=== PATIENT | male | born 1940 | race Caucasian/White ===

== ENCOUNTER 2018-04-04 11:13 | Inpatient (IN) | payer MEDICARE, OTHER ==
[2018-04-04] MEDS: NS 1,000 ML IV ×2 (13:18→18:42)
[2018-04-04 13:19] LABS: BASO % 0.1 % (0.0-1.0); HEMATOCRIT 40.5 % (42.0-52.0); HEMOGLOBIN 13.6 g/dl (13.5-17.5); IMMATURE GRANULOCYTE % 0.9 % (0-3.0); LYMPH # 0.7 10^3/uL (1.5-4.5); LYMPH % 4.2 % (24.0-44.0); MEAN CORPUSCULAR HEMOGLOBIN 29.1 pg (27.0-33.0); MEAN CORPUSCULAR HGB CONC 33.6 g/dl (32.0-36.5); MEAN CORPUSCULAR VOLUME 86.5 fl (80.0-96.0); MONO # 1.1 10^3/uL (0.0-0.8); MONO % 6.8 % (0.0-5.0); NEUTROPHILS # 14.5 10^3/uL (1.8-7.7); PLATELET COUNT, AUTOMATED 307 10^3/uL (150-450); RED BLOOD COUNT 4.68 10^6/uL (4.30-6.10); RED CELL DISTRIBUTION WIDTH 15.9 % (11.5-14.5); WHITE BLOOD COUNT 16.5 10^3/uL (4.0-10.0)
[2018-04-04 13:26] LABS: PROTHROMBIN TIME 14.4 SECONDS (12.1-14.4)
[2018-04-04 13:50] LABS: ALBUMIN 2.8 GM/DL (3.2-5.2); ALBUMIN/GLOBULIN RATIO 0.57 (1.00-1.93); ALKALINE PHOSPHATASE 117 U/L (45-117); ALT/SGPT 16 U/L (12-78); ANION GAP 12 MEQ/L (8-16); AST/SGOT 20 U/L (7-37); BILIRUBIN,DIRECT 0.2 MG/DL (0.0-0.2); BILIRUBIN,TOTAL 0.5 MG/DL (0.2-1.0); BLOOD UREA NITROGEN 40 MG/DL (7-18); CALCIUM LEVEL 9.7 MG/DL (8.8-10.2); CARBON DIOXIDE LEVEL 27 MEQ/L (21-32); CHLORIDE LEVEL 99 MEQ/L (98-107); CREATININE FOR GFR 2.69 MG/DL (0.70-1.30); GLOMERULAR FILTRATION RATE 24.6 (>42); GLUCOSE, FASTING 192 MG/DL (70-100); LIPASE 155 U/L (73-393); POTASSIUM SERUM 3.9 MEQ/L (3.5-5.1); SODIUM LEVEL 138 MEQ/L (136-145); TOTAL PROTEIN 7.7 GM/DL (6.4-8.2)
[2018-04-04 13:54] LABS: LACTIC ACID SEPSIS PROTOCOL 2.8 MMOL/L (0.4-2.0)
[2018-04-04 15:09] LABS: POTASSIUM RANDOM URINE 35.1 MEQ/L; SODIUM,RANDOM URINE 70 MEQ/L
[2018-04-04 15:11] LABS: AMORPHOUS SEDIMENT RFX SMALL (NEGATIVE); KETONE, URINE AUTO RFX NEGATIVE (NEGATIVE); LEUKOCYTE ESTERASE UR AUTO RFX 3+ (NEGATIVE); MUCUS, URINE RFX SMALL (NEGATIVE); NITRITE, URINE AUTO RFX NEGATIVE (NEGATIVE); RBC, URINE AUTO RFX 22 /HPF (0-3); SPECIFIC GRAVITY UR AUTO RFX 1.009 (1.002-1.035); SQUAM EPITHELIAL CELL UR AURFX 0 /HPF (0-6); WBC, URINE AUTO RFX TNTC /HPF (0-3)
[2018-04-04 15:17] LABS: OSMOLALITY URINE 362 MOSM/KG (500-800)
[2018-04-04 15:20] LABS: OSMOLALITY SERUM 299 MOSM/KG (280-301)
[2018-04-04] MEDS: LevoFLOXacin IV 500 MG in APPROPRIATE DILUENT 1 EA IV (15:35)
[2018-04-04] MEDS ORDERED: BISACODYL 5 MG TAB PO (18:00)
[2018-04-04] MEDS: TAMSULOSIN 0.4 MG CAP PO (22:09)
[2018-04-04] MEDS: HEPARIN SOD (PORCINE) 5000 UNITS/ML VIAL SC (22:09)
[2018-04-05] MEDS: HEPARIN SOD (PORCINE) 5000 UNITS/ML VIAL SC ×3 (05:25→21:31)
[2018-04-05 05:36] LABS: HEMATOCRIT 30.4 % (42.0-52.0); MEAN CORPUSCULAR HEMOGLOBIN 29.4 pg (27.0-33.0); MEAN CORPUSCULAR HGB CONC 33.6 g/dl (32.0-36.5); MEAN CORPUSCULAR VOLUME 87.6 fl (80.0-96.0); RED BLOOD COUNT 3.47 10^6/uL (4.30-6.10); RED CELL DISTRIBUTION WIDTH 15.9 % (11.5-14.5); WHITE BLOOD COUNT 9.1 10^3/uL (4.0-10.0)
[2018-04-05 05:39] LABS: HEMOGLOBIN 10.2 g/dl (13.5-17.5); PLATELET COUNT, AUTOMATED 207 10^3/uL (150-450)
[2018-04-05 05:48] LABS: ANION GAP 7 MEQ/L (8-16); BLOOD UREA NITROGEN 35 MG/DL (7-18); CALCIUM LEVEL 8.5 MG/DL (8.8-10.2); CARBON DIOXIDE LEVEL 27 MEQ/L (21-32); CHLORIDE LEVEL 106 MEQ/L (98-107); CREATININE FOR GFR 1.69 MG/DL (0.70-1.30); GLUCOSE, FASTING 108 MG/DL (70-100); POTASSIUM SERUM 3.8 MEQ/L (3.5-5.1); SODIUM LEVEL 140 MEQ/L (136-145)
[2018-04-05] MEDS: TAMSULOSIN 0.4 MG CAP PO ×2 (08:45→20:22)
[2018-04-05] MEDS: OMEPRAZOLE 20 MG CAP PO (08:45)
[2018-04-05] MEDS ORDERED: LOSARTAN 25 MG TAB PO (09:00)
[2018-04-05] MEDS: METOPROLOL SUCC (TopROL XL) 50MG **XL** TAB PO (09:00)
[2018-04-05] MEDS: BACITRACIN OINT 30GM As Ordered (13:28)
[2018-04-05] MEDS: BUPIVACAINE HCL 0.25% 30 ML VIAL As Ordered (13:28)
[2018-04-05] MEDS: NS 1,000 ML IV ×2 (14:43→18:45)
[2018-04-05 16:02] LABS: BEDSIDE GLUCOSE 95 MG/DL (83-110)
[2018-04-05] MEDS: ceFAZolin 2 GM/D5W 50 ML IV BAG (J0690 PER 500MG) As Ordered (16:52)
[2018-04-05] MEDS ORDERED: ONDANSETRON 4MG/2ML VIAL (J2405) As Ordered (17:13)
[2018-04-05] MEDS: LR 1,000 ML IV (17:21)
[2018-04-05] MEDS ORDERED: fentaNYL 100 MCG/2 ML INJECTION (J3010) As Ordered ×2 (17:30→17:54)
[2018-04-05] MEDS ORDERED: LIDOCAINE 2% INJ 100 MG/5 ML SDV (FOR ANES.) As Ordered (17:30)
[2018-04-05] MEDS ORDERED: PROPOFOL 200 MG/20 ML VIAL As Ordered (17:30)
[2018-04-05] MEDS ORDERED: MIDAZOLAM INJ 2 MG/2 ML VIAL (J2250) As Ordered (17:30)
[2018-04-05] MEDS ORDERED: ONDANSETRON 4MG/2ML VIAL (J2405) IV (17:45)
[2018-04-05] MEDS: fentaNYL 100 MCG/2 ML INJECTION (J3010) IV ×3 (17:54→18:06)
[2018-04-06] MEDS: NS 1,000 ML IV ×2 (04:46→18:07)
[2018-04-06] MEDS: HEPARIN SOD (PORCINE) 5000 UNITS/ML VIAL SC ×3 (06:00→21:01)
[2018-04-06 06:11] LABS: HEMATOCRIT 31.6 % (42.0-52.0); HEMOGLOBIN 10.3 g/dl (13.5-17.5); MEAN CORPUSCULAR HEMOGLOBIN 29.7 pg (27.0-33.0); MEAN CORPUSCULAR HGB CONC 32.6 g/dl (32.0-36.5); MEAN CORPUSCULAR VOLUME 91.1 fl (80.0-96.0); PLATELET COUNT, AUTOMATED 200 10^3/uL (150-450); RED BLOOD COUNT 3.47 10^6/uL (4.30-6.10); RED CELL DISTRIBUTION WIDTH 15.9 % (11.5-14.5)
[2018-04-06 06:17] LABS: ANION GAP 8 MEQ/L (8-16); BLOOD UREA NITROGEN 27 MG/DL (7-18); CALCIUM LEVEL 8.3 MG/DL (8.8-10.2); CARBON DIOXIDE LEVEL 26 MEQ/L (21-32); CHLORIDE LEVEL 111 MEQ/L (98-107); CREATININE FOR GFR 1.13 MG/DL (0.70-1.30); GLOMERULAR FILTRATION RATE > 60.0 (>42); GLUCOSE, FASTING 109 MG/DL (70-100); POTASSIUM SERUM 3.5 MEQ/L (3.5-5.1); SODIUM LEVEL 145 MEQ/L (136-145)
[2018-04-06] MEDS: TAMSULOSIN 0.4 MG CAP PO ×2 (08:49→21:01)
[2018-04-06] MEDS: OMEPRAZOLE 20 MG CAP PO (08:49)
[2018-04-06] MEDS: LevoFLOXacin 750 MG TABLET PO (08:50)
[2018-04-06] MEDS: METOPROLOL SUCC (TopROL XL) 50MG **XL** TAB PO (08:50)
[2018-04-06] MEDS: ASPIRIN 325 MG TAB PO (11:46)
[2018-04-06] MEDS: CEFDINIR 300 MG CAP (OMNICEF) PO ×2 (11:46→21:01)
[2018-04-06] MEDS: ATORVASTATIN 20 MG TAB PO (11:47)
[2018-04-06] MEDS: ONDANSETRON 4 MG TAB (S0181) PO (18:28)
[2018-04-06] MEDS: ACETAMINOPHEN TAB 650MG DOSE (2X325MG) PO (21:37)
[2018-04-07] MEDS: NS 1,000 ML IV (03:45)
[2018-04-07] MEDS: HEPARIN SOD (PORCINE) 5000 UNITS/ML VIAL SC ×3 (05:12→21:03)
[2018-04-07 05:38] LABS: HEMATOCRIT 28.7 % (42.0-52.0); HEMOGLOBIN 9.3 g/dl (13.5-17.5); MEAN CORPUSCULAR HEMOGLOBIN 29.4 pg (27.0-33.0); MEAN CORPUSCULAR HGB CONC 32.4 g/dl (32.0-36.5); MEAN CORPUSCULAR VOLUME 90.8 fl (80.0-96.0); PLATELET COUNT, AUTOMATED 178 10^3/uL (150-450); RED BLOOD COUNT 3.16 10^6/uL (4.30-6.10); RED CELL DISTRIBUTION WIDTH 15.9 % (11.5-14.5); WHITE BLOOD COUNT 3.8 10^3/uL (4.0-10.0)
[2018-04-07 05:50] LABS: ANION GAP 8 MEQ/L (8-16); BLOOD UREA NITROGEN 19 MG/DL (7-18); CARBON DIOXIDE LEVEL 26 MEQ/L (21-32); CHLORIDE LEVEL 110 MEQ/L (98-107); CREATININE FOR GFR 1.04 MG/DL (0.70-1.30); GLOMERULAR FILTRATION RATE > 60.0 (>42); GLUCOSE, FASTING 93 MG/DL (70-100); POTASSIUM SERUM 3.1 MEQ/L (3.5-5.1); SODIUM LEVEL 144 MEQ/L (136-145)
[2018-04-07] MEDS: POTASSIUM CHLORIDE 10 MEQ SR TABLET PO (06:51)
[2018-04-07] MEDS: OMEPRAZOLE 20 MG CAP PO (08:39)
[2018-04-07] MEDS: ASPIRIN 81 MG ENTERIC TAB PO (08:39)
[2018-04-07] MEDS: TAMSULOSIN 0.4 MG CAP PO ×2 (08:39→21:01)
[2018-04-07] MEDS: CEFDINIR 300 MG CAP (OMNICEF) PO ×2 (08:40→21:01)
[2018-04-07] MEDS: ATORVASTATIN 20 MG TAB PO (08:40)
[2018-04-07] MEDS: KCL 40MEQ in NS 1000ML 1,000 ML IV ×2 (08:41→18:22)
[2018-04-07] MEDS: ACETAMINOPHEN TAB 650MG DOSE (2X325MG) PO ×2 (11:18→18:39)
[2018-04-08] MEDS: KCL 40MEQ in NS 1000ML 1,000 ML IV (04:00)
[2018-04-08] MEDS: HEPARIN SOD (PORCINE) 5000 UNITS/ML VIAL SC (05:37)
[2018-04-08 05:55] LABS: HEMATOCRIT 29.4 % (42.0-52.0); HEMOGLOBIN 9.6 g/dl (13.5-17.5); MEAN CORPUSCULAR HGB CONC 32.7 g/dl (32.0-36.5); MEAN CORPUSCULAR VOLUME 88.8 fl (80.0-96.0); PLATELET COUNT, AUTOMATED 188 10^3/uL (150-450); RED BLOOD COUNT 3.31 10^6/uL (4.30-6.10); RED CELL DISTRIBUTION WIDTH 16.1 % (11.5-14.5); WHITE BLOOD COUNT 3.8 10^3/uL (4.0-10.0)
[2018-04-08 06:18] LABS: ANION GAP 6 MEQ/L (8-16); BLOOD UREA NITROGEN 14 MG/DL (7-18); CARBON DIOXIDE LEVEL 26 MEQ/L (21-32); CHLORIDE LEVEL 111 MEQ/L (98-107); CREATININE FOR GFR 0.91 MG/DL (0.70-1.30); GLOMERULAR FILTRATION RATE > 60.0 (>42); GLUCOSE, FASTING 85 MG/DL (70-100); SODIUM LEVEL 143 MEQ/L (136-145)
[2018-04-08] MEDS: OMEPRAZOLE 20 MG CAP PO (08:39)
[2018-04-08] MEDS: TAMSULOSIN 0.4 MG CAP PO (08:39)
[2018-04-08] MEDS: ASPIRIN 81 MG ENTERIC TAB PO (08:39)
[2018-04-08] MEDS: ATORVASTATIN 20 MG TAB PO (08:39)
[2018-04-08] MEDS: CEFDINIR 300 MG CAP (OMNICEF) PO (08:40)
== END 2018-04-08 15:20 | disposition home or self-care (01) | DRG 871 ==
LOC: M ED 11:13 → M ED INP 16:21 → M PCU 21:33
PROVIDERS: Hospitalist
PROC: 0V950ZZ Drainage of Scrotum, Open Approach (ICD-10-PCS; principal; 2018-04-05 16:30)
DX: A41.9 Sepsis, unspecified organism (principal); I63.9 Cerebral infarction, unspecified; C79.89 Secondary malignant neoplasm of other specified sites; N17.9 Acute kidney failure, unspecified; N13.0 Hydronephrosis with ureteropelvic junction obstruction; E87.2 Acidosis; C15.9 Malignant neoplasm of esophagus, unspecified; R47.01 Aphasia; R65.20 Severe sepsis without septic shock; R63.4 Abnormal weight loss; I65.23 Occlusion and stenosis of bilateral carotid arteries; I10 Essential (primary) hypertension; B96.20 Unspecified Escherichia coli [E. coli] as the cause of diseases classified elsewhere; N45.2 Orchitis; R33.9 Retention of urine, unspecified; K21.9 Gastro-esophageal reflux disease without esophagitis; Z87.891 Personal history of nicotine dependence; Z79.899 Other long term (current) drug therapy

== ENCOUNTER 2018-04-09 11:36 | Outpatient (CLI) | payer MEDICARE | END 2018-04-09 12:20 | disposition home or self-care (01) | LOC: M OPCLI5PR 11:36 → M MS5PR 11:37 → M OPCLI5PR 12:20 | DX: N49.2 Inflammatory disorders of scrotum (principal) | CPT/HCPCS: 97602 ==

== ENCOUNTER 2018-04-10 11:30 | Outpatient (CLI) | payer MEDICARE | END 2018-04-10 11:55 | disposition home or self-care (01) | LOC: M OPCLI5PR 11:30 → M MS5PR 11:38 → M OPCLI5PR 11:55 | DX: N49.2 Inflammatory disorders of scrotum (principal) | CPT/HCPCS: 97602 ==

== ENCOUNTER 2018-04-11 11:23 | Outpatient (CLI) | payer MEDICARE | END 2018-04-11 12:15 | disposition home or self-care (01) | LOC: M OPCLI5PR 11:23 → M MS5PR 11:26 → M OPCLI5PR 12:15 | DX: N49.2 Inflammatory disorders of scrotum (principal) | CPT/HCPCS: 97602 ==

== ENCOUNTER 2018-04-19 10:45 | Outpatient (RCR) | payer MEDICARE | END 2018-05-08 | LOC: M ST 10:45 | DX: Z51.89 Encounter for other specified aftercare (principal); I63.9 Cerebral infarction, unspecified | CPT/HCPCS: 92507 ==

== ENCOUNTER 2018-05-11 09:02 | Outpatient (RCR) | payer MEDICARE | END 2018-06-08 | LOC: M ST 09:02 | DX: Z51.89 Encounter for other specified aftercare (principal); I69.320 Aphasia following cerebral infarction | CPT/HCPCS: 92507 ==

== ENCOUNTER 2018-06-10 07:56 | Outpatient (RCR) | payer MEDICARE | END 2018-07-08 | LOC: M ST 07:56 | DX: I69.320 Aphasia following cerebral infarction (principal) | CPT/HCPCS: 92523 ==

== ENCOUNTER → 2018-06-13 | Outpatient (REF) | payer MEDICARE | LOC: M SMT 13:15 | DX: Z01.818 Encounter for other preprocedural examination (principal); N40.1 Benign prostatic hyperplasia with lower urinary tract symptoms; N39.0 Urinary tract infection, site not specified | CPT/HCPCS: 87088; 87186 ==

== ENCOUNTER 2018-06-20 14:12 | Day surgery (SDC) | payer MEDICARE ==
[~2018-06-20 14:12] MED LIST: LIDOCAINE 2% INJ 100 MG/5 ML SDV (FOR ANES.) As Ordered; MIDAZOLAM INJ 2 MG/2 ML VIAL (J2250) As Ordered; PROPOFOL 200 MG/20 ML VIAL As Ordered; ROCURONIUM BROMIDE 50 MG/5 ML VIAL As Ordered; dexameTHASONE 4 MG/ML 1ML VIAL (J1100) As Ordered; fentaNYL 250 MCG/5 ML INJECTION (J3010) As Ordered
[2018-06-20] MEDS: LR 1,000 ML IV (14:30)
[2018-06-20] MEDS ORDERED: LIDOCAINE 1% MDV 20ML VIAL SQ (14:30)
[2018-06-20] MEDS: VANCOMYCIN HCL 1,000 MG, VIAL MATE ADAPTER 1 EACH in D5W 250 ML IV (16:30)
[2018-06-20] MEDS: GENTAMICIN 80 MG in APPROPRIATE DILUENT 1 EA IV (18:47)
[2018-06-20] MEDS ORDERED: ePHEDrine SULFATE 25 MG/5 ML(5MG/ML) SYRINGE As Ordered (19:08)
[2018-06-20] MEDS ORDERED: ONDANSETRON 4MG/2ML VIAL (J2405) As Ordered ×2 (19:44)
[2018-06-20] MEDS ORDERED: FUROSEMIDE 100 MG/10 ML VIAL (J1940) As Ordered ×2 (19:59)
[2018-06-20] MEDS ORDERED: ONDANSETRON 4MG/2ML VIAL (J2405) IV (21:00)
[2018-06-20] MEDS ORDERED: fentaNYL 100 MCG/2 ML INJECTION (J3010) IV (21:00)
[2018-06-20] MEDS ORDERED: LR 1,000 ML IV (21:00)
[2018-06-20] MEDS ORDERED: ACETAMINOPHEN TAB 650MG DOSE (2X325MG) PO (21:30)
== END 2018-06-20 22:30 | disposition home or self-care (01) ==
LOC: M SDC 14:12
DX: N40.1 Benign prostatic hyperplasia with lower urinary tract symptoms (principal); R33.8 Other retention of urine; I10 Essential (primary) hypertension; C15.9 Malignant neoplasm of esophagus, unspecified; R06.02 Shortness of breath; M54.9 Dorsalgia, unspecified; Z79.899 Other long term (current) drug therapy; Z79.82 Long term (current) use of aspirin; Z92.21 Personal history of antineoplastic chemotherapy; Z86.718 Personal history of other venous thrombosis and embolism; Z92.3 Personal history of irradiation; Z87.81 Personal history of (healed) traumatic fracture
CPT/HCPCS: 52601

== ENCOUNTER → 2018-07-27 | Outpatient (REF) | payer MEDICARE ==
[~2018-07-27] MED LIST changes: +ASPI81TAEC PO; +ATOR1TAB21 PO; +BACT400T PO; +CEFD300CAP PO; +FLOM0.4C39 PO; +IRBE75TA5 PO; +IRON325T7 PO; -LIDOCAINE 2% INJ 100 MG/5 ML SDV (FOR ANES.) As Ordered; +MACR100C43 PO; +METO1TAB7 PO; -MIDAZOLAM INJ 2 MG/2 ML VIAL (J2250) As Ordered; +OMEP20CA3 PO; -PROPOFOL 200 MG/20 ML VIAL As Ordered; -ROCURONIUM BROMIDE 50 MG/5 ML VIAL As Ordered; +VALS1TAB46 PO; -dexameTHASONE 4 MG/ML 1ML VIAL (J1100) As Ordered; -fentaNYL 250 MCG/5 ML INJECTION (J3010) As Ordered
[2018-07-27 14:03] LABS: APPEARANCE, URINE CLOUDY (CLEAR); BACTERIA, URINE AUTO 1+ (NEGATIVE); BILIRUBIN, URINE AUTO NEGATIVE (NEGATIVE); BLOOD, URINE BLOOD 1+ (NEGATIVE); COLOR, URINE YELLOW (YELLOW); GLUCOSE, URINE (UA) AUTO NEGATIVE (NEGATIVE); KETONE, URINE AUTO NEGATIVE (NEGATIVE); LEUKOCYTE ESTERASE, URINE AUTO 3+ (NEGATIVE); MUCUS, URINE SMALL (NEGATIVE); NITRITE, URINE AUTO NEGATIVE (NEGATIVE); PROTEIN, URINE AUTO 2+ mg/dL (NEGATIVE); RBC, URINE AUTO 61 /HPF (0-3); SPECIFIC GRAVITY URINE AUTO 1.024 (1.002-1.035); SQUAMOUS EPITHELIAL CELL UR AU 0 /HPF (0-6); WBC, URINE AUTO TNTC /HPF (0-3)
== END ==
LOC: M SMT 13:33
PROVIDERS: ATTEND Nurse Practitioner Family
DX: N40.1 Benign prostatic hyperplasia with lower urinary tract symptoms (principal)